=== PATIENT | male | born 1955 | race Caucasian/White ===

== ENCOUNTER → 2016-12-15 14:25 | Outpatient (CLI) | payer OTHER | END | disposition home or self-care (01) | LOC: D.MRI 14:25 | DX: M25.561 Pain in right knee (principal) ==

== ENCOUNTER → 2017-01-31 11:17 | Outpatient (CLI) | payer OTHER | END | disposition home or self-care (01) | LOC: D.US 11:17 | DX: R60.0 Localized edema (principal); M79.604 Pain in right leg ==

== ENCOUNTER 2018-05-19 06:05 | Day surgery (SDC) | payer OTHER ==
[2018-05-18 12:59] LABS: HEMATOCRIT 39.7 % (42.0-54.0); HEMOGLOBIN 13.2 g/dL (13.5-17.5); MCH 30.8 pg (26.0-34.0); MCHC 33.2 g/dL (31.0-37.0); MCV 92.5 fL (80.0-100.0); MEAN PLATELET VOLUME 10.7 fL (7.4-10.4); RBC 4.29 10x6/uL (4.20-6.10); RDW 12.8 % (11.5-14.5)
[~2018-05-19] VITALS: Ht 185.4 cm; Wt 117.9 kg
--- NOTE | ~2018-05-19 | OP ---
PATIENT NAME: CLARISSE VUONG MEDICAL RECORD: [id number] :57 LOCATION:[facility] ADMISSION DATE: SURGEON: NELSON GRAHAM DO DATE OF OPERATION: 05/19/2018 PROCEDURE PERFORMED: Right knee arthroscopy with partial medial and partial lateral meniscectomy. 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 INDICATIONS: Mr. Vuong is a 63-year-old male, who came into my office sometime ago complaining of right knee pain. He has x-rays that showed some osteoarthritis, but not very severe. We tried injections including gels and injections, which did not provide him relief. He started with catching and locking and pain with ambulation. MRI was done, which showed meniscal tear. I informed him that he is in the category of the knee scope, may help him because of the amount of arthritis that he had. It is not severe, but it was mild to moderate and the meniscal tear. Due to the fact the injections did not help, he wanted to have a knee scope done and have the meniscus trimmed out. I was okay with that. He was informed of the risks and benefits of the procedure including infection, bleeding, damage to nerve or vessels, and need for further surgery. He consented to the procedure. SURGEON: Nelson Graham DO DESCRIPTION OF PROCEDURE: The patient was taken to the operative suite, laid in supine position. Right lower extremity was prepped and draped in sterile fashion. A time-out was performed and everyone was in agreement with the correct side, site, patient, and procedure. Once time-out was performed, the knee was flexed down. The lateral portal was established with an 11-blade scalpel and then the trocar was entered in the knee. The knee was then inspected in the suprapatellar pouch. No loose body was seen in the area in the lateral gutter or medial gutter. The knee was then brought from extension down to flexion of the knee. Medial compartment was entered and viewed. The posterior horn of the medial meniscus was torn severely and the medial portal was established. There was some bleeding with the medial portal and 10 mg of 0.25% Marcaine with epinephrine was injected around that medial portal site to stop the bleed. Once the bleeding stopped, the probe was entered into the knee and the biter. The meniscus was trimmed out and then the shaver was brought in to trim out the meniscus further back to a stable point. Once this was trimmed back to a stable point, it was probed and seen to be stable on the medial meniscus. The probe was then used to probe the ACL, it was seen to be very taut and then parked in the notch and the knee was figure 4 and the lateral compartment was entered. There was a small tear seen on the anterior horn of the lateral meniscus and this was trimmed out with a shaver. The cartilage in the medial compartment noted to have grade II to III changes of the medial femoral condyle. The lateral compartment cartilage was good and under the patella was inspected as well and was seen to have some grade II changes of chondromalacia as well. The water was then turned off and the suction was turned on and the trocar was removed. The portal sites were closed with 4-0 Monocryl in inverted interrupted fashion. Steri-Strips, Adaptic, 4 x 4, Telfa, OPERATIVE REPORT [id number] CLARISSE VUONG and a Tegaderm were placed over the knee. Then, a Webril and 6-inch Rui were placed over the knee. A LC hose stocking was placed up to the knee. Blood loss was minimal. COMPLICATIONS: None. TRANSINT:[id number] Voice Confirmation ID: [id number] DOCUMENT ID: [id number] NELSON GRAHAM DO at 1237 CC: [id number] DICTATION DATE: 05/19/18919 BOOK PUBLISHER: 05/19/18 1004 [facility] 05/19/18 [place] [id number] [place] [id number]
[~2018-05-19 06:05] MED LIST: BAYER CHEWABLE81 MG PO; COREG6.25 MG; FOLIC ACID1 MG PO; LIPITOR80 MG PO; PRINIVIL20 MG PO; VITAMIN B-12500 MCG PO; VITAMIN D5000 UNIT PO
[2018-05-19] MEDS ORDERED: NEXIUM40 MG PO (06:47)
[2018-05-19 07:02] VITALS: BP 140/70; Ht 185.4 cm; Wt 117.9 kg
[2018-05-19] MEDS ORDERED: PERCOCET 7.5/321 TAB PO (09:15)
== END 2018-05-19 11:00 | disposition home or self-care (01) ==
LOC: D.OPS 06:05 → D.PAN 09:00 → D.OPS 09:10 → D.PAN 09:10 → D.OPS 11:00 → D.PAN 12:15 → D.OPS 12:15
PROVIDERS: Anesthesiology
DX: S83.241A Other tear of medial meniscus, current injury, right knee, initial encounter (principal); S83.281A Other tear of lateral meniscus, current injury, right knee, initial encounter; M94.261 Chondromalacia, right knee; Z01.812 Encounter for preprocedural laboratory examination

== ENCOUNTER → 2018-08-07 12:27 | Outpatient (CLI) | payer OTHER ==
[2018-05-19 07:02] VITALS: BMI 34.3
[~2018-08-07 12:27] MED LIST changes: +ENTRESTO 24 MG1 EACH PO; +NEXIUM40 MG PO; +PERCOCET 7.5/321 TAB PO
== END | disposition home or self-care (01) ==
LOC: D.LABREF 12:27
DX: M17.11 Unilateral primary osteoarthritis, right knee (principal); Z11.8 Encounter for screening for other infectious and parasitic diseases

== ENCOUNTER 2018-08-09 10:00 | Inpatient (IN) | payer OTHER ==
[~2018-08-09] VITALS: Ht 182.9 cm; Wt 115.7 kg
--- NOTE | ~2018-08-09 | MORECARE ---
CASE MANAGEMENT DISCHARGE SUMMARY PATIENT: CLARISSE VUONG UNIT: [id number] ADM DATE: 08/29/18 AGE: 63 : 57 SEX: M ROOM/BED: D.2202 AUTHOR: OSCAR BOSS PHYSICIAN: REFERRING PHYSICIAN: SIA GRAHAM DO DATE OF SERVICE: 08/31/18 Discharge Plan Patient Name: CLARISSE VUONG Facility: [facility]:[place] : 1955 Planned Disposition: Home Anticipated Discharge Date: Discharge Date: Expected LOS: Initial Reviewer: [email or web address] Initial Review Date: 08/29/2018 Generated: 08/31/18 10:35 am Comments DCP- Discharge Planning Updated by [email or web address]: Berna Roman on 08/31/18 8:[address] Patient Name: CLARISSE VUONG Encounter No: [id number] : 1955 Primary Insurance: TRICAREER Anticipated DC Date: Planned Disposition: Home External Planned Provider: : DCP follow-up note: Patient and family in agreement with discharge plan. No changes to plan. Case management will follow and assist as needed. Berna Roman DCP- Discharge Planning Updated by [email or web address]: Berna Roman on 08/30/18 2:[address] Patient Name: CLARISSE VUONG Admission Status: Elective Accout number: [id number] Admission Date: 08-29-2018 : 1955 Admission Diagnosis: Attending: SIA GRAHAM Current LOS: 1 Anticipated DC Date: Planned Disposition: Home Primary Insurance: TRICAREER Discharge Planning Comments: CM met with patient to assess discharge planning needs. Patient lives independently with his and plans to return there at discharge . He states his home is safe to return there are no steps to enter. He has a walker, bedside commode, ice machine and CPM. He will like to go to do OP PT at [facility] I made his appointment for TuesdaySep 04 at 10:30 am I spoke with Yudy. I will send referral. Director Specialty: Berna Roman DCPIA - Discharge Planning Initial Assessment Updated by [email or web address]: Berna Roman on 08/30/18 2:55 pm * Is the patient Alert and Oriented? Yes * How many steps to enter\exit or inside your home? * PCP Kym Jovel) * Pharmacy [facility] * Preadmission Environment Home with Family * ADLs Independent * Equipment Bedside Commode Walker * Other Equipment cpm ice machine * List name and contact numbers for known caregivers / representatives who currently or will assist patient after discharge: Melissa () [phone] * Verbal permission to speak to the caregivers and representatives has been obtained from the patient. N/A * Community resources currently utilized None * Additional services required to return to the preadmission environment? Yes * Can the patient safely return to the preadmission environment? Yes * Has this patient been hospitalized within the prior 30 days at any hospital? No Last DP export: 08/30/18 2:08 Patient Name: CLARISSE VUONG Page 49516 at 0935 All edits/amendments must be made on the electronic document DICTATION DATE: 08/31/18933 AMPOULE INSPECTOR: BG 08/31/18933 RPT#: [id number] DC DATE: STATUS: ADM IN [facility] [address] [place] [address] END OF REPORT
--- NOTE | ~2018-08-09 | OP ---
PATIENT NAME: CLARISSE VUONG MEDICAL RECORD: [id number] :57 LOCATION:[facility] [address] ADMISSION DATE:08/29/18 SURGEON: NELSON GRAHAM DO DATE OF OPERATION: 08/29/2018 PROCEDURE PERFORMED: Right total knee arthroplasty. PREOPERATIVE DIAGNOSIS: Right knee osteoarthritis. POSTOPERATIVE DIAGNOSIS: Right knee osteoarthritis. INDICATIONS: Mr. Vuong is a 63-year-old male who had been seen for little over a year now. He complained of right knee pain. We tried injections, even gels and injections. He had a pacemaker, so he get an MRI, but I scoped the knee due to his meniscal symptoms of popping, catching and locking. I trimmed out his meniscus on medial and lateral and that did not resolve his problems, noted to have chondromalacia on the scope. I informed him, you know this may happen and that he may end up needing a total knee. He was on board with that and had good cardiac clearance. He did get cardiac clearance and he was tired of dealing with right knee pain and wanted to get something done about it. He said it affected his activities of daily living and he could no longer go on with the pain. I informed him of the risks and benefits including need for further surgery, infection, bleeding, damage to nerve and vessels, blood clots, and even . He was okay with those risks and consented to the procedure. SURGEON: Nelson Graham DO ASSISTANTS: Jarrod Chung, advanced nurse practitioner; Doroteo Nuñez; and Lashawn Pascual, GEOGRAPHIC AREA INTELLIGENCE OFFICER The patient received a block in the preoperative area by anesthesia and taken to the operative suite, laid in the supine position. The right lower extremity was prepped and draped in sterile fashion. Timeout was performed. Everyone was in agreeance with the correct side, site and patient. DESCRIPTION OF PROCEDURE: Once timeout had been performed, the medial midline incision in the anterior knee was marked out of the midline and then the knee was wrapped in Ioban. The 10-blade scalpel was then used to make the incision down to the capsule itself. Capsule was cleared off and a new 10-blade scalpel was used in a medial parapatellar approach through the capsule. All bleeders were coagulated with Aquamantys during the procedure as the tourniquet was not used. The patella was then everted. Part of the fat pad was removed and the patella was milled down in anticipation of the implant. A 34 three-peg thin patella was used. The femur was then exposed and intramedullary canal was entered with the drill and the distal femoral cutting guide was put into place. Once the distal femoral cutting guide was pinned in place, a cut was made and then the tibia was exposed and cut as well. The ACL was removed at that time. Tibia was cut and then the menisci were cleared off of either side with the knee in extension using a laminar mixing machine feeder at distal ob gyn, pituitary and a Bovie. The posterior capsule and medial and lateral genicular arteries were coagulated with the Aquamantys. During this time, the extension block had quite fit and we recut the tibia 2 more mm mostly off the medial side. The MCL was released as well. This made the knee balanced quite well with the extension block in. The knee was then flexed up and the femur was measured to be 67.5. A 4-in-1 cutting block was put on, measured with rosa maria wing and this seemed not to notch. Then, OPERATIVE REPORT [id number] CLARISSE VUONG the 4-in-1 cutting block was used to cut the distal femur in preparation for the implant. The trial was then put on and a 10-poly with a tray was floated in. The knee was ranged and rotation was marked. Once that was done, the patella was drilled and 3 peg holes were drilled. Then, the poly had been removed as well as the tibial tray and the lug holes were drilled through the femoral trial. The tibia was then exposed and sized to be 75, 75 cruciate tibia was used. This was drilled and then punched and then the cement was mixed. Cement was placed into the tibia and onto the implant, this was impacted and placed a couple of times. Excess cement was removed. The femoral implant was then put on the porous. A 65 cruciate retaining porous right femur was put on and impacted into place and then the poly was put in between the tibia and femur, brought to an extension and held. The cement was then put on the patella and the patellar implant and a squeezer was put on. Excess cement was removed at that time. The knee was thoroughly irrigated at that point with normal saline. Once the cement was dry, we trialed the 10-poly, then 12 patella poly was trialed and this seemed to fit very well. Had good medial and lateral stability in flexion and extension, and then the trial was removed and a 12 E-poly cruciate standard was placed in. Then, the locking mechanism was locked into the tibial tray with the poly. The knee was thoroughly irrigated at that point and then Surgicel powder beads were put in and tobramycin and vancomycin powder placed into the knee. The capsule was then closed with #2 Ethibond and #1 pop-off Vicryls in pnidow-ae-tzofh fashion. On top, the capsule was then irrigated. Next, more vancomycin, tobramycin powder was placed as well as certain Surgicel beads and the skin was closed with 2-0 Vicryl in inverted interrupted fashion. ZipLine was placed on the knee and then Adaptic, 4 x 4s, ABD, Webril, Rui wrap and LC hose stocking were placed up to the knee. The patient was then awakened and taken to recovery in stable condition. Blood loss was approximately 150 mL. COMPLICATIONS: None. USED BIOMET IMPLANTS: Vanguard knee 67.5 femur, 75 cruciate tibia, a 34 three-peg thin patella and a 12 E-poly cruciate standard bearing. TRANSINT:[id number] Voice Confirmation ID: [id number] DOCUMENT ID: [id number] NELSON GRAHAM DO at 1549 CC: [id number] DICTATION DATE: 08/29/18 1225 SUPERVISOR FRAME ASSEMBLY: 08/29/18 1440 [facility] [place] [id number] [place] [address]
--- NOTE | ~2018-08-09 | MORECARE ---
CASE MANAGEMENT DISCHARGE SUMMARY PATIENT: CLARISSE VUONG UNIT: [id number] ADM DATE: 08/29/18 AGE: 63 : 57 SEX: M ROOM/BED: D.2202 AUTHOR: OSCAR BOSS PHYSICIAN: REFERRING PHYSICIAN: SIA GRAHAM DO DATE OF SERVICE: 08/30/18 Discharge Plan Patient Name: CLARISSE VUONG Facility: [facility]:[place] : 1955 Planned Disposition: Home Anticipated Discharge Date: Discharge Date: Expected LOS: Initial Reviewer: [email or web address] Initial Review Date: 08/29/2018 Generated: 08/30/18 3:58 pm DCPIA - Discharge Planning Initial Assessment Updated by [email or web address]: Berna Roman on 08/30/18 2:55 pm * Is the patient Alert and Oriented? Yes * How many steps to enter\exit or inside your home? * PCP yKm Jovel) * Pharmacy [facility] * Preadmission Environment Home with Family * ADLs Independent * Equipment Bedside Commode Walker * Other Equipment cpm ice machine * List name and contact numbers for known caregivers / representatives who currently or will assist patient after discharge: Melissa () [phone] * Verbal permission to speak to the caregivers and representatives has been obtained from the patient. N/A * Community resources currently utilized None * Additional services required to return to the preadmission environment? Yes * Can the patient safely return to the preadmission environment? Yes * Has this patient been hospitalized within the prior 30 days at any hospital? No Patient Name: CLARISSE VUONG Page 16375 at 1459 All edits/amendments must be made on the electronic document DICTATION DATE: 08/30/181457 COMPONENT ASSEMBLER SUPERVISOR: BG 08/30/181457 RPT#: [id number] DC DATE: STATUS: ADM IN [facility] [address] [place] [address] END OF REPORT
--- NOTE | ~2018-08-09 | MORECARE ---
CASE MANAGEMENT DISCHARGE SUMMARY PATIENT: CLARISSE VUONG UNIT: [id number] ADM DATE: 08/29/18 AGE: 63 : 57 SEX: M ROOM/BED: D.2202 AUTHOR: KARYNDOC PHYSICIAN: REFERRING PHYSICIAN: SIA GRAHAM DO DATE OF SERVICE: 08/30/18 Discharge Plan Patient Name: CLARISSE VUONG Facility: [facility]:[place] : 1955 Planned Disposition: Home Anticipated Discharge Date: Discharge Date: Expected LOS: Initial Reviewer: [email or web address] Initial Review Date: 08/29/2018 Generated: 08/30/18 4:08 pm Comments DCP- Discharge Planning Updated by [email or web address]: Berna Roman on 08/30/18 2:[address] Patient Name: CLARISSE VUONG Admission Status: Elective Accout number: [id number] Admission Date: 08-29-2018 : 1955 Admission Diagnosis: Attending: SIA GRAHAM Current LOS: 1 Anticipated DC Date: Planned Disposition: Home Primary Insurance: TRICAREER Discharge Planning Comments: CM met with patient to assess discharge planning needs. Patient lives independently with his and plans to return there at discharge . He states his home is safe to return there are no steps to enter. He has a walker, bedside commode, ice machine and CPM. He will like to go to do OP PT at [facility] I made his appointment for TuesdaySep 04 at 10:30 am I spoke with Yudy. I will send referral. Sketcher: Berna Roman DCPIA - Discharge Planning Initial Assessment Updated by [email or web address]: Berna Roman on 08/30/18 2:55 pm * Is the patient Alert and Oriented? Yes * How many steps to enter\exit or inside your home? * PCP Kym Jovel) * Pharmacy [facility] * Preadmission Environment Home with Family * ADLs Independent * Equipment Bedside Commode Walker * Other Equipment cpm ice machine * List name and contact numbers for known caregivers / representatives who currently or will assist patient after discharge: Melissa () [phone] * Verbal permission to speak to the caregivers and representatives has been obtained from the patient. N/A * Community resources currently utilized None * Additional services required to return to the preadmission environment? Yes * Can the patient safely return to the preadmission environment? Yes * Has this patient been hospitalized within the prior 30 days at any hospital? No Last DP export: 08/30/18 1:59 Patient Name: CLARISSE VUONG Page 33100 at 1508 All edits/amendments must be made on the electronic document DICTATION DATE: 08/30/18 150 CHAIN TENDER: BG 08/30/18 1508 RPT#: [id number] DC DATE: STATUS: ADM IN [facility] [address] [place] [address] END OF REPORT
[~2018-08-09 10:00] MED LIST changes: -ENTRESTO 24 MG1 EACH PO
[2018-08-24] MEDS ORDERED: ENTRESTO 24 MG1 EACH PO (11:54)
[2018-08-24 12:51] LABS: BASOPHILS 0.3 % (0-2); EOSINOPHILS 2.5 % (0-7); HEMATOCRIT 44.8 % (42.0-54.0); HEMOGLOBIN 15.3 g/dL (13.5-17.5); IMMATURE GRANULOCYTES 0.2 % (0-5); LYMPHOCYTES 30.9 % (15-50); MCH 31.5 pg (26.0-34.0); MCHC 34.2 g/dL (31.0-37.0); MCV 92.4 fL (80.0-100.0); MEAN PLATELET VOLUME 10.7 fL (7.4-10.4); MONOCYTES 7.2 % (2-11); NEUTROPHILS 58.9 % (40-80); RBC 4.85 10x6/uL (4.20-6.10); RDW 12.6 % (11.5-14.5); WBC 6.5 10x3/uL (4.8-10.8)
[2018-08-24 12:53] LABS: PLATELET COUNT 234 10x3/uL (130-400)
[2018-08-24 13:03] LABS: APPEARANCE CLEAR (CLEAR); BILIRUBIN NEGATIVE (NEGATIVE); COLOR YELLOW (YELLOW); GLUCOSE NEGATIVE (NEGATIVE); KETONE NEGATIVE (NEGATIVE); NITRITE NEGATIVE (NEGATIVE); PROTEIN NEGATIVE (NEGATIVE); UROBILINOGEN NORMAL (NORMAL)
[2018-08-24 13:07] LABS: INR 0.99 (0.85-1.17); PROTIME 12.6 SECONDS (11.6-15.0)
[2018-08-24 13:08] LABS: CALC OSMOLALITY 289 mosm/kg (275-300); CALCIUM 9.4 mg/dL (8.5-10.1); CARBON DIOXIDE 27.9 mmol/L (21.0-32.0); CHLORIDE - SERUM 104 mmol/L (98-107); CREATININE - SERUM 0.8 mg/dL (0.6-1.3); GLUCOSE 108 mg/dL (74-106); POTASSIUM - SERUM 4.6 mmol/L (3.5-5.1); SODIUM 144 mmol/L (136-145); UREA NITROGEN 17 mg/dL (7-18); eGFR NON AFRICAN AMERICAN > 90 mL/min (90-120)
[2018-08-29] VITALS (9 sets, daily range): BP systolic 94–139; BP diastolic 61–97; BMI 33.7; BMI 34.6
[2018-08-30 00:40] VITALS: BP 107/69
[2018-08-30 05:05] LABS: BASOPHILS 0.1 % (0-2); EOSINOPHILS 0 % (0-7); HEMATOCRIT 40.7 % (42.0-54.0); HEMOGLOBIN 13.7 g/dL (13.5-17.5); IMMATURE GRANULOCYTES 0.2 % (0-5); LYMPHOCYTES 8.3 % (15-50); MCHC 33.7 g/dL (31.0-37.0); MCV 92.1 fL (80.0-100.0); MEAN PLATELET VOLUME 10.7 fL (7.4-10.4); NEUTROPHILS 86.4 % (40-80); PLATELET COUNT 215 10x3/uL (130-400); RBC 4.42 10x6/uL (4.20-6.10); RDW 12.6 % (11.5-14.5); WBC 12.3 10x3/uL (4.8-10.8)
[2018-08-30 05:26] LABS: ALBUMIN 3.4 g/dL (3.4-5.0); ALKALINE PHOSPHATASE 76 U/L (46-116); ALT (SGPT) 21 U/L (10-68); BILIRUBIN - TOTAL 0.34 mg/dL (0.2-1.3); CALC OSMOLALITY 287 mosm/kg (275-300); CALCIUM 8.2 mg/dL (8.5-10.1); CARBON DIOXIDE 27.1 mmol/L (21.0-32.0); CHLORIDE - SERUM 105 mmol/L (98-107); CREATININE - SERUM 0.9 mg/dL (0.6-1.3); POTASSIUM - SERUM 4.1 mmol/L (3.5-5.1); SODIUM 142 mmol/L (136-145); UREA NITROGEN 16 mg/dL (7-18); eGFR NON AFRICAN AMERICAN > 90 mL/min (90-120)
[2018-08-30 05:35] LABS: GLUCOSE 164 mg/dL (74-106)
[2018-08-30 08:56] VITALS: BP 110/64
[2018-08-30 09:01] VITALS: BP 110/64
[2018-08-30 10:37] VITALS: Ht 182.9 cm; Wt 115.7 kg
[2018-08-30 13:34] VITALS: BP 128/65
[2018-08-30 16:25] VITALS: BP 121/61
[2018-08-30 20:00] VITALS: BP 108/57
[2018-08-31] VITALS: BP 99/54
[2018-08-31 04:30] LABS: BASOPHILS 0.2 % (0-2); HEMATOCRIT 38.1 % (42.0-54.0); HEMOGLOBIN 12.6 g/dL (13.5-17.5); IMMATURE GRANULOCYTES 0.1 % (0-5); LYMPHOCYTES 24.4 % (15-50); MCH 30.8 pg (26.0-34.0); MCHC 33.1 g/dL (31.0-37.0); MCV 93.2 fL (80.0-100.0); MEAN PLATELET VOLUME 10.7 fL (7.4-10.4); MONOCYTES 8.1 % (2-11); NEUTROPHILS 66.2 % (40-80); PLATELET COUNT 191 10x3/uL (130-400); RBC 4.09 10x6/uL (4.20-6.10); RDW 13.1 % (11.5-14.5)
[2018-08-31 04:46] LABS: ALKALINE PHOSPHATASE 79 U/L (46-116); ALT (SGPT) 16 U/L (10-68); BILIRUBIN - TOTAL 0.42 mg/dL (0.2-1.3); CALC OSMOLALITY 283 mosm/kg (275-300); CALCIUM 7.7 mg/dL (8.5-10.1); CARBON DIOXIDE 29.3 mmol/L (21.0-32.0); CHLORIDE - SERUM 104 mmol/L (98-107); CREATININE - SERUM 0.8 mg/dL (0.6-1.3); POTASSIUM - SERUM 3.6 mmol/L (3.5-5.1); PROTEIN - SERUM 6.3 g/dL (6.4-8.2); SODIUM 141 mmol/L (136-145); UREA NITROGEN 18 mg/dL (7-18); eGFR NON AFRICAN AMERICAN > 90 mL/min (90-120)
[2018-08-31 04:49] LABS: WBC 8.7 10x3/uL (4.8-10.8)
[2018-08-31 04:58] LABS: GLUCOSE 110 mg/dL (74-106)
[2018-08-31 05:39] VITALS: BP 108/59
[2018-08-31] MEDS ORDERED: BAYER CHEWABLE81 MG PO (07:43)
[2018-08-31] MEDS ORDERED: ULTRAM50 MG PO (07:44)
[2018-08-31] MEDS ORDERED: TORADOL10 MG PO (07:45)
[2018-08-31] MEDS ORDERED: KEFLEX500 MG PO (07:46)
[2018-08-31 09:12] VITALS: BP 120/65
== END 2018-08-31 10:32 | disposition home or self-care (01) | DRG 470 ==
LOC: D.SDCHOLD 08-29 10:00 → D.MS 08-29 12:57
PROVIDERS: Family Medicine; Orthopaedic Surgery
PROC: 0SRC0JZ Replacement of Right Knee Joint with Synthetic Substitute, Open Approach (ICD-10-PCS; principal; 2018-08-29 11:00)
DX: M17.11 Unilateral primary osteoarthritis, right knee (principal); D62 Acute posthemorrhagic anemia; I10 Essential (primary) hypertension; I25.10 Atherosclerotic heart disease of native coronary artery without angina pectoris; Z95.1 Presence of aortocoronary bypass graft; K21.9 Gastro-esophageal reflux disease without esophagitis; Z87.891 Personal history of nicotine dependence

== ENCOUNTER → 2018-10-09 09:15 | Outpatient (CLI) | payer OTHER ==
[2018-08-30 10:37] VITALS: BMI 34.6
[~2018-10-09 09:15] MED LIST changes: +ENTRESTO 24 MG1 EACH PO; +KEFLEX500 MG PO; +TORADOL10 MG PO; +ULTRAM50 MG PO
== END | disposition home or self-care (01) ==
LOC: D.RAD 09:15
DX: M54.16 Radiculopathy, lumbar region (principal)

== ENCOUNTER → 2018-10-16 09:34 | Outpatient (CLI) | payer OTHER ==
[2018-08-30 10:37] VITALS: BMI 34.6
--- NOTE | ~2018-10-16 | HEMODYNAMI ---
PATIENT:CLARISSE VUONG MEDICAL RECORD: [id number] : 57 LOCATION:[facility] ADMISSION DATE: 10/16/18 Generatedon:10/16/201811:19 Patient name: CLARISSE VUONG Patient #: [id number] SSN: : 1955 Date of study: 10/16/2018 Page: Of Hemodynamic Procedure Report Patient Data Patient Demographics Procedure consent was obtained First Name: CLARISSE Gender: Male Last Name: CAROLANN : 1955 [facility] Initial: RAJ Age: 63 year(s) Patient #: [id number] Race: Unknown Additional ID: [id number] Contact details Address: [address] [place] [address] State: [place] City: [facility] Zip code: [address] Past Medical History Allergies Allergen Reaction Date Comments Reported Other allergy 10/16/2018 SHELL FISH Admission Admission Data Admission Date: 10/16/2018 Admission Time: 9:34 Procedure Procedure Types Cath Procedure Peripheral Cath Diagnostic Procedure Miscellaneous Epidural Steroid Injection Procedure Description Procedure Date Procedure Date: 10/16/2018 Procedure Start Time: 11:01 Procedure Staff Name Function Nelson Jara MD Performing Physician Mykel Gutierrez RT Monitor Leda Stovall RN Nurse Procedure Data Cath Procedure Fluoroscopy Diagnostic fluoroscopy Total fluoroscopy Time: 0.1 time: 0.1 min min Diagnostic fluoroscopy Total fluoroscopy dose: 2 dose: 2 mGy mGy Hemodynamics Rest Pre Cath Intra NCS Post Cath Procedure Log Time Note 10:12:23 Mykel Gutierrez RT (R) (CV) sent for patient. Start room use. 10:12:30 Time tracking: Regular hours (M-F 7:00 - 5:00) 10:12:36 Patient received from Outpatients to IR Alert and oriented. Tansferred to table in Prone position. 10:12:37 Correct patient and procedure confirmed by team. 10:12:46 Signed procedure consent form obtained from patient. 10:12:47 Full Disclosure recording started 10:12:48 - 10:12:49 Pre-procedure instructions explained to patient. 10:12:49 Pre-op teaching completed and patient verbalized understanding. 10:12:58 Family unavailable. 10:13:58 Patient allergic to Other allergySHELL FISH 10:14:03 Is patient on blood thinner?No 10:14:20 Lumbar area was prepped with chlora-prep and draped in sterile fashion 11:00:46 Physician arrived 11:00:46 --------ALL STOP TIME OUT------ 11:00:47 Final Timeout: patient, procedure, and site verified with staff and physician. All members of the team are in agreement. 11:00:52 Lumbar site verified by team. 11:00:59 Sedation plan: Local Anesthetic Medication:Lidocaine 11:01:10 Procedure started. 11:01:17 Local anesthetic to Lumbar area with Lidocaine 1% by Nelson Jara MD.INITIAL ACCESS ONLY 11:03:56 KIT EPIDURAL CATHETERIZATION opened to sterile field. 11:16:27 Procedure ended.(Physican Out) 11:18:11 Fluoroscopy time 00.10 minutes. 11:18:14 Fluoroscopy dose: 2 mGy 11:18:14 Flurop Dose total: 2 11:18:54 BANDAIDE APPLIED LUMBAR SITE STABLE PT WILL BE SENT TO WAITING ROOM AND SENT HOME IN 15 MIN Device Usage Item Name Manufacture Quantity Catalog Hospital Part [facility] Lot# / Number Charge Number Stock Stock Serial# Code KIT EPIDURAL Teleflex 1 [id number] CATHETERIZATION Signature Audit [place] Stage Time Signature Unsigned Intra-Procedure 10/16/2018 Mykel 11:19:16 AM Brenda RT (R) (CV) Signatures Monitor : Mykel Signature : Brenda RT Date : Time : [facility] [address] [place] [address]
== END | disposition home or self-care (01) ==
LOC: D.RAD 09:34
DX: M54.16 Radiculopathy, lumbar region (principal)

== ENCOUNTER → 2018-11-16 12:47 | Outpatient (CLI) | payer OTHER ==
[2018-08-30 10:37] VITALS: BMI 34.6
--- NOTE | ~2018-11-16 | HEMODYNAMI ---
PATIENT:CLARISSE VUONG MEDICAL RECORD: [id number] : 57 LOCATION:[facility] ADMISSION DATE: 11/16/18 Generatedon:11/16/201814:14 Patient name: CLARISSE VUONG Patient #: [id number] SSN: : 1955 Date of study: 11/16/2018 Page: Of Hemodynamic Procedure Report Patient Data Patient Demographics Procedure consent was obtained First Name: CLARISSE Gender: Male Last Name: CAROLANN : 1955 [facility] Initial: RAJ Age: 63 year(s) Patient #: [id number] Race: Unknown Additional ID: [id number] Contact details Address: [address] [place] [address] State: [place] City: [facility] Zip code: [address] Past Medical History Allergies Allergen Reaction Date Comments Reported Other allergy 10/16/2018 SHELL FISH Other allergy 11/16/2018 SHELLFISH Admission Admission Data Admission Date: 11/16/2018 Admission Time: 12:47 Procedure Procedure Types Cath Procedure Peripheral Cath Diagnostic Procedure Miscellaneous Epidural Steroid Injection Procedure Description Procedure Date Procedure Date: 11/16/2018 Procedure Start Time: 14:01 Procedure Staff Name Function Nelson Jara MD Performing Physician Mykel Gutierrez RT Monitor Leda Fajardo Scrub Edna Stovall RN Nurse Procedure Data Cath Procedure Fluoroscopy Diagnostic fluoroscopy Total fluoroscopy Time: 0 time: 0 min min Diagnostic fluoroscopy Total fluoroscopy dose: 1 dose: 1 mGy mGy Hemodynamics Rest Pre Cath Intra NCS Post Cath Procedure Log Time Note 13:24:54 Mykel Gutierrez RT (R) (CV) sent for patient. Start room use. 13:25:03 Time tracking: Regular hours (M-F 7:00 - 5:00) 13:25:10 Patient received from Outpatients to IR Alert and oriented. Tansferred to table in Prone position. 13:25:17 Correct patient and procedure confirmed by team. 13:25:19 Signed procedure consent form obtained from patient. 13:25:21 Full Disclosure recording started 13:25:22 Pre-procedure instructions explained to patient. 13:25:22 Pre-op teaching completed and patient verbalized understanding. 13:25:25 Family unavailable. 13:25:37 Patient allergic to Other allergySHELLFISH 13:25:56 Is patient on blood thinner?No 14:01:01 Lumbar area was prepped with chlora-prep and draped in sterile fashion 14:01:04 --------ALL STOP TIME OUT------ 14:01:05 Final Timeout: patient, procedure, and site verified with staff and physician. All members of the team are in agreement. 14:01:10 Lumbar site verified by team. 14:01:14 Sedation plan: Local Anesthetic Medication:Lidocaine 14:01:44 Procedure started. 14:01:54 Local anesthetic to Lumbar area with Lidocaine 1% by Nelson Jara MD.INITIAL ACCESS ONLY 14:02:17 KIT EPIDURAL CATHETERIZATION opened to sterile field. 14:10:52 Procedure ended.(Physican Out) 14:11:50 Fluoroscopy time 00.00 minutes. 14:11:55 Fluoroscopy dose: 1 mGy 14:11:55 Flurop Dose total: 1 14:12:27 BANDAIDE APPLIED TO LUMBAR AREA SITE STABLE 14:12:53 PT.SENT TO WAITING ROOM FOR 15 MIN THEN SENT HOME Device Usage Item Name Manufacture Quantity [facility] Part [facility] Lot# / Number Charge Number Stock Stock Serial# Code KIT EPIDURAL Teleflex 1 [id number] CATHETERIZATION Signature Audit [place] Stage Time Signature Unsigned Intra-Procedure 11/16/2018 Mykel 2:14:04 PM Brenda RT (R) (CV) Signatures Monitor : Mykel Signature : Brenda RT Date : Time : [place] [id number]
== END | disposition home or self-care (01) ==
LOC: D.RAD 12:47
PROVIDERS: ATTEND Orthopaedic Surgery
DX: M54.16 Radiculopathy, lumbar region (principal)

== ENCOUNTER → 2020-03-06 09:49 | Outpatient (CLI) | payer OTHER ==
[2018-08-30 10:37] VITALS: BMI 34.6
== END | disposition home or self-care (01) ==
LOC: D.NM 09:49
PROVIDERS: ATTEND Orthopaedic Surgery
DX: M25.561 Pain in right knee (principal)